=== PATIENT | male | born 1955 | race American Indian/Alaskan Native ===

== ENCOUNTER 2017-12-02 11:08 | Emergency (ER) | payer OTHER ==
[2017-12-02 11:20] VITALS: BP 148/79; PULSE 74; TEMP 98; BMI 23.5
--- NOTE | 2017-12-02 11:57 | PDOC ---
History of Present Illness <Agapito Bernardo - Last Filed: 12/02/17 14:30> - General History Source: Patient Exam Limitations: No Limitations - History of Present Illness Initial Comments: 12/02/17 14:50 The patient is a 62 year old male, with a significant past medical history of diabetes, hypercholesterolemia and kidney stone, who presents to the emergency department complaining of left sided abdominal pain onset this morning. He reports that he is unsure if th pain woke him up this morning. He describes his abdominal pain as ranging from moderate to severe, rating it a 9/10 in severity. He notes that the pain radiates to his left flank. He reports that the pain is exacerbated with certain movements or positions. He states that he had nonbloody loose stools yesterday and has since resolved. He also states that he experienced some episodes of nausea due to the pain but has since resolved. The pattient denies chest pain, shortness of breath, headache or dizziness. Denies fever, chills, vomiting, and constipation. Denies dysuria, frequency, urgency and hematuria. No associated numbness/tingling/weakness of the extremties. Allergies: None Past surgical history: None reported Social History: No alcohol, tobacco or drug use reported <Trever Tavera - Last Filed: 12/02/17 14:51> - General Chief Complaint: Pain Stated Complaint: ABD PAIN Time Seen by Provider: 12/02/17 11:33 Past History - Past Medical History COPD: No DVT: No Diabetes: Yes Hypercholesterolemia: (high triglycerides) - Suicide/Smoking/Psychosocial Hx Smoking History: Never smoked <Agapito Bernardo - Last Filed: 12/02/17 14:30> <Trever Tavera - Last Filed: 12/02/17 14:51> - Past Medical History Allergies/Adverse Reactions: Allergies Allergy/AdvReac Type Severity Reaction Status Date / Time No Known Allergies Allergy Verified 12/02/17 11:20 Home Medications: Ambulatory Orders Fenofibrate Nanocrystallized [Fenofibrate] 145 mg PO DAILY 12/02/17 Ibuprofen [Motrin -] 400 mg PO QID PRN #28 tablet 12/02/17 Oxycodone HCl/Acetaminophen [Percocet 5-325 mg Tablet] 1 tab PO Q6H PRN #20 tablet MDD 4 12/02/17 Sitagliptin Phos/Metformin HCl [Janumet 50-500 mg Tablet] 1 each PO BID Tamsulosin HCl [Flomax] 0.4 mg PO DAILY #7 capsule 12/02/17 Review of Systems - Review of Systems Able to Perform ROS?: Yes Comments:: 12/02/17 14:50 CONSTITUTIONAL: No reported: Fever, Chills, Diaphoresis, Generalized Weakness, Malaise, Loss of Appetite HEENT: No reported: Rhinorrhea, Nasal Congestion, Throat Pain, Throat Swelling, Difficulty Swallowing, Mouth Swelling, Ear Pain, Eye Pain, Visual Changes CARDIOVASCULAR: No reported: Chest Pain, Syncope, Palpitations, Irregular Heart Rate, Lightheadedness, Peripheral Edema RESPIRATORY: No reported: Cough, Shortness of Breath, SOB with Exertion, Orthopnea, Wheezing , Stridor, Hemoptysis GASTROINTESTINAL: Reported: Left sided abdominal pain nausea No reported: Abdominal Distension, Vomiting, Constipation, Melena, Hematochezia GENITOURINARY: Reported: Left sided flank pain. No reported: Dysuria, Frequency, Urgency, Hesitancy, Genital Pain MUSCULOSKELETAL: No reported: Myalgia, Arthralgia, Joint Swelling, Back pain, Neck Pain SKIN: No reported: Rash, Itching, Pallor HEMEATOLOGIC/IMMUNOLOGIC: No reported: Easy Bleeding, Easy Bruising, Lymphadenopathy, Frequent infections ENDOCRINE: No reported: Unexplained Weight Gain, Unexplained Weight Loss, Heat Intolerance , Cold Intolerance NEUROLOGIC: No reported: Headache, Focal Weakness, Paresthesias, Vertigo, Lightheadedness, Unsteady Gait, Seizure, Mental Status Changes, Incontinence PSYCHIATRIC: No reported: Anxiety, Depression <Trever Tavera - Last Filed: 12/02/17 14:51> *Physical Exam - Vital Signs Last Vital Signs Temp Pulse Resp BP Pulse Ox 98 F 74 18 148/79 99 12/02/17 11:16 12/02/17 11:16 12/02/17 11:16 12/02/17 11:16 12/02/17 11:16 <Agapito Bernardo - Last Filed: 12/02/17 14:30> - Vital Signs Last Vital Signs Temp Pulse Resp BP Pulse Ox 98 F 74 18 148/79 99 12/02/17 11:16 12/02/17 11:16 12/02/17 11:16 12/02/17 11:16 12/02/17 11:16 - Physical Exam Comments: 12/02/17 14:50 GENERAL: The patient is awake, alert, and fully oriented, Nontoxic - in no acute distress. HEAD: Normocephalic, atraumatic. EYES: extraocular movements intact, sclera anicteric, conjunctiva clear. ENT: Normal voice, Moist mucous membranes. NECK: Normal range of motion, supple LUNGS: Breath sounds equal, clear to auscultation bilaterally. No wheezes, no rhonchi, no rales. HEART: Regular rate and rhythm, without murmur, rub or gallop. ABDOMEN: Soft, nontender, normoactive bowel sounds. No guarding, no rebound. No CVA tenderness EXTREMITIES: Normal range of motion, no edema. No clubbing or cyanosis. No cords, erythema, or tenderness. NEUROLOGICAL: No facial assymetry, Normal speech, PSYCH: Normal mood, normal affect. SKIN: Warm, Dry, normal turgor <Trever Tavera - Last Filed: 12/02/17 14:51> ED Treatment Course - LABORATORY CBC & Chemistry Diagram: 12/02/17 12:14 12/02/17 12:14 <Agapito Bernardo - Last Filed: 12/02/17 14:30> - LABORATORY CBC & Chemistry Diagram: 12/02/17 12:14 12/02/17 12:14 - ADDITIONAL ORDERS Additional order review: Laboratory Results 12/02/17 12/02/17 12:14 12:14 Sodium 139 Potassium 4.0 Chloride 103 Carbon Dioxide 25 Anion Gap 11 BUN 25 H Creatinine 1.1 Creat Clearance w eGFR > 60 Random Glucose 235 H Calcium 9.6 Total Bilirubin 0.4 AST 14 L ALT 32 Alkaline Phosphatase 52 Total Protein 7.6 Albumin 4.3 Urine Color Karmen Urine Appearance Slcloudy Urine pH 5.0 Ur Specific [place] 1.019 Urine Protein Negative Urine Glucose (UA) 2+ H Urine Ketones Negative Urine Blood 2+ H Urine Nitrite Negative Urine Bilirubin Negative Urine Urobilinogen Negative Ur Leukocyte Esterase Negative Urine WBC (Auto) 2 Urine RBC (Auto) 32 Urine Mucus Rare 12/02/17 12:14 RBC 5.06 MCV 86.2 MCHC 34.0 RDW 13.4 MPV 8.0 Neutrophils % 70.2 Lymphocytes % 20.0 Monocytes % 6.5 Eosinophils % 2.4 Basophils % 0.9 - Medications Given in the ED: ED Medications Discontinued Medications Generic Name Dose Route Start Last Admin Trade Name [place] PRN Reason Stop Dose Admin Sodium Chloride 1,000 mls @ 1,000 mls/hr 12/02/17 12:17 12/02/17 12:19 Normal Saline - IV 12/02/17 13:16 1,000 mls/hr .Q1H ONE Administration Ketorolac Tromethamine 30 mg 12/02/17 12:17 12/02/17 12:19 Toradol Injection - IVPUSH 12/02/17 12:18 30 mg ONCE ONE Administration <Trever Tavera - Last Filed: 12/02/17 14:51> Medical Decision Making - Medical Decision Making 12/02/17 11:54 62y M hx of DM, kidney stones presents with L sided abd pain that radiates to the flank and back. Started when he woke up, and is very severe, is colicky nature, but currently pain has resolved. denies dysuria, hematuria, fever/chills , bowel complaints, n/v, exam unremarkable suspect kidney stone/nephrolithiasis Plan is to obtain bloodwork, ua, renal US will give tordaol for pain and will reassess 12/02/17 14:32 pt feeling well currently pain free UA with hematuria US shows no hydronephrosis - likely due to small stone will dc [t with meds and fu w urology return precautions were discussed I discussed the physical exam findings, ancillary test results and final diagnoses with the patient. I answered all of the patient's questions. The patient was satisfied with the care received and felt comfortable with the discharge plan and treatment plan. The patient will call their primary care physician within 24 hours to arrange follow-up and will return to the Emergency Department with any new, persistent or worsening symptoms. A portion of this note was documented by scribe services under my direction. I have reviewed the details of the note, within reason, and agree with the documentation with the following case summary and management plan written by me <Agapito Bernardo - Last Filed: 12/02/17 14:30> *DC/Admit/Observation/Transfer - Discharge Dispostion Admit: No <Tova,Agapito - Last Filed: 12/02/17 14:30> - Attestations Scribe Attestion: 12/02/17 14:51 Documentation prepared by Trever Tavera, acting as emergency medical technician basic for Agapito Bernardo MD <Trever Tavera - Last Filed: 12/02/17 14:51> Diagnosis at time of Disposition: Kidney stone on left side - Discharge Dispostion Disposition: HOME Condition at time of disposition: Improved - Prescriptions Prescriptions: Ibuprofen [Motrin -] 400 mg PO QID PRN #28 tablet PRN Reason: Pain Oxycodone HCl/Acetaminophen [Percocet 5-325 mg Tablet] 1 tab PO Q6H PRN #20 tablet MDD 4 PRN Reason: Severe Pain Tamsulosin HCl [Flomax] 0.4 mg PO DAILY #7 capsule - Referrals Referrals: Ivonne Ralph MD [Primary Care Provider] - Rudolph Tavera MD [Staff Physician] - - Patient Instructions Printed Discharge Instructions: DI for Kidney Stones Additional Instructions: Return to the emergency department immediately with ANY new, persistent or worsening symptoms including worsening pain, fevers, inability to tolerate oral intake or any other concerns. Take the pain medication as prescribed. Followup with urology for your kidney stones. You MUST call and follow up with your doctor tomorrow for further evaluation of your symptoms. Results were discussed with you. Please make sure your doctor reviews the results of your emergency evaluation. Print Language: MALAGASY - Post Discharge Activity
[2017-12-02] MEDS ORDERED: SODIUM CHLORIDE 1,000 ML IV ONE (12:17)
[2017-12-02] MEDS ORDERED: KETOROLAC TROMETHAMINE 30 MG/1 ML VIAL IVPUSH ONE (12:17)
[2017-12-02] MEDS ORDERED: KETOROLAC TROMETHAMINE 30 MG/1 ML VIAL ONE (12:21)
[2017-12-02 12:23] LABS: URINE APPEARANCE SLCLOUDY; URINE BILIRUBIN NEGATIVE (<2.0 mg/dL); URINE BLOOD 2+ (NEGATIVE); URINE COLOR AMBER; URINE GLUCOSE (UA) 2+ (NEGATIVE); URINE KETONE NEGATIVE (NEGATIVE); URINE LEUK ESTERASE NEGATIVE (NEGATIVE); URINE NITRITE NEGATIVE (NEGATIVE); URINE PROTEIN NEGATIVE (NEGATIVE); URINE UROBILINOGEN NEGATIVE mg/dL (0.2-1.0)
[2017-12-02 12:25] LABS: BASO % 0.9 % (0-2.0); EOS % 2.4 % (0-4.5); HEMATOCRIT 43.6 % (35.4-49); HEMOGLOBIN 14.8 GM/dL (11.7-16.9); MCH 29.3 pg (25.7-33.7); MEAN CELL VOLUME 86.2 fl (80-96); MONO % 6.5 % (3.8-10.2); NEUT % 70.2 % (42.8-82.8); PLATELET COUNT 243 K/MM3 (134-434); RBC 5.06 M/mm3 (4.00-5.60); RDW 13.4 % (11.9-15.9); WHITE BLOOD COUNT 8.6 K/mm3 (4.0-10.0)
[2017-12-02 12:27] LABS: URINE MUCUS RARE
[2017-12-02 12:52] LABS: ALBUMIN 4.3 g/dl (3.4-5.0); ANION GAP 11 (8-16); BLOOD UREA NITROGEN 25 mg/dL (7-18); CALCIUM 9.6 mg/dL (8.5-10.1); CHLORIDE 103 mmol/L (98-107); CO2 25 mmol/L (21-32); GLUCOSE,RANDOM 235 mg/dL (74-106); SGPT/ALT 32 U/L (12-78); SODIUM 139 mmol/L (136-145)
[2017-12-02 12:55] LABS: ALK PHOS 52 U/L (45-117); BILIRUBIN,TOTAL 0.4 mg/dL (0.2-1.0); CREATININE 1.1 mg/dL (0.7-1.3); SGOT/AST 14 U/L (15-37); TOT PROT 7.6 g/dl (6.4-8.2)
== END 2017-12-02 14:49 | disposition home or self-care (01) ==
LOC: JER 11:08
PROC: 3E033GC Introduction of Other Therapeutic Substance into Peripheral Vein, Percutaneous Approach (ICD-10-PCS; principal; 2017-12-02)
DX: N20.0 Calculus of kidney (principal); Z87.442 Personal history of urinary calculi; E11.9 Type 2 diabetes mellitus without complications; Z79.84 Long term (current) use of oral hypoglycemic drugs; E78.00 Pure hypercholesterolemia, unspecified
CPT/HCPCS: 36415; 76775-TC; 80053; 81003; 81015; 85025; 99283-25; J7030

== ENCOUNTER 2017-12-06 05:09 | Inpatient (IN) | payer OTHER ==
[2017-12-06 06:17] VITALS: BMI 23.5
[2017-12-06] MEDS ORDERED: SODIUM CHLORIDE 1,000 ML IV STA ×2 (06:26→07:47)
--- NOTE | 2017-12-06 06:26 | PDOC ---
*Physical Exam - Vital Signs Last Vital Signs Temp Pulse Resp BP Pulse Ox 98.2 F 86 19 125/79 100 12/06/17 05:10 12/06/17 05:10 12/06/17 05:10 12/06/17 05:10 12/06/17 05:10 ED Treatment Course - LABORATORY CBC & Chemistry Diagram: 12/06/17 06:40 12/06/17 06:40 Medical Decision Making - Medical Decision Making 12/06/17 06:26 agree with care from MIRNA Floyd *DC/Admit/Observation/Transfer Diagnosis at time of Disposition: Left flank pain, Kidney stone on left side, Hydronephrosis - Discharge Dispostion Condition at time of disposition: Good - Prescriptions - Referrals - Patient Instructions - Post Discharge Activity
--- NOTE | 2017-12-06 06:26 | PDOC ---
History of Present Illness - General Chief Complaint: Pain, Acute Stated Complaint: PAIN Time Seen by Provider: 12/06/17 06:16 History Source: Patient Exam Limitations: No Limitations - History of Present Illness Initial Comments: CHIEF COMPLAINT: 62 y/o afebrile male with PMH DM, HLD and kidney stones c/o left sided flank pain for the past 5 days. HISTORY OF PRESENT ILLNESS: Patient states he was seen here for the same pain 5 days ago when it started. He had a kidney ultrasound which showed no hydronephrosis, and was discharged with rx for percocet, ibuprofen and flomax. He was instructed to f/u with a urologist, which he did yesterday. He has continued to have pain intermittently but this morning he was woken up by the pain and it hasn't gone away despite taking percocet at 2am and 400mg of ibuprofen at 3am. He admits to nausea with the pain. He denies f/c, vomiting, CP, SOB, back pain, hematuria, dysuria. His urologist scheduled him for an outpatient CT scan tomorrow. Vital signs on arrival are within normal limits REVIEW OF SYSTEMS: GENERAL/CONSTITUTIONAL: No fever/chills. No weakness. No weight change. HEAD, EYES, EARS, NOSE AND THROAT: No change in vision. No ear pain or discharge. No sore throat. CARDIOVASCULAR: No chest pain or shortness of breath. RESPIRATORY: No cough, wheezing, or hemoptysis. GASTROINTESTINAL: +left flank pain. No nausea, vomiting, diarrhea. GENITOURINARY: No dysuria, frequency, or change in urination. MUSCULOSKELETAL: No joint or muscle swelling or pain. No neck or back pain. SKIN: No rash or easy bruising. NEUROLOGIC: No headache, vertigo, loss of consciousness, or loss of sensation. PHYSICAL EXAM: GENERAL: The patient is awake, alert, and fully oriented, in no acute distress. He appears uncomfortable. HEAD: Normal with no signs of trauma. ENT: Pupils equal, round and reactive to light, extraocular movements intact, sclera anicteric, conjunctiva clear. Neck supple. LUNGS: Clear to auscultation bilaterally. Normal excursion. No respiratory distress or use of accessory muscles. CV: RRR, S1/S2, no MRG. Cap refill < 2 sec. ABDOMEN: Soft, non-distended, non-tender even to deep palpation, no hepatomegaly or splenomegaly, no masses. No flank pain with palpation BACK: No CVA TTP b/l. EXTREMITIES: Normal range of motion, no edema. NEUROLOGICAL: Normal speech, normal gait. CN II-XII grossly intact. PSYCH: Normal mood, normal affect. SKIN: Warm, dry, normal turgor, no rashes or lesions noted. Past History - Past Medical History Allergies/Adverse Reactions: Allergies Allergy/AdvReac Type Severity Reaction Status Date / Time No Known Allergies Allergy Verified 12/02/17 11:20 Home Medications: Ambulatory Orders Fenofibrate Nanocrystallized [Fenofibrate] 145 mg PO DAILY 12/02/17 Ibuprofen [Motrin -] 400 mg PO QID PRN #28 tablet 12/02/17 Oxycodone HCl/Acetaminophen [Percocet 5-325 mg Tablet] 1 tab PO Q6H PRN #20 tablet MDD 4 12/02/17 Sitagliptin Phos/Metformin HCl [Janumet 50-500 mg Tablet] 1 each PO BID Tamsulosin HCl [Flomax] 0.4 mg PO DAILY #7 capsule 12/02/17 COPD: No DVT: No Diabetes: Yes Hypercholesterolemia: (high triglycerides) - Suicide/Smoking/Psychosocial Hx Smoking History: Never smoked Hx Alcohol Use: No Drug/Substance Use Hx: No *Physical Exam - Vital Signs Last Vital Signs Temp Pulse Resp BP Pulse Ox 98.2 F 86 19 125/79 100 12/06/17 05:10 12/06/17 05:10 12/06/17 05:10 12/06/17 05:10 12/06/17 05:10 Medical Decision Making - Medical Decision Making A/P: 62 y/o male seen here 5 days ago for renal colic c/o worsened symptoms. Plan is as follows: 1. Labs 2. UA/culture 3. Spiral CT 4. IV fluids I am signing this patient out to my colleague: MIRNA Serrato In brief, this patient is being seen in the ED for a chief complaint of: left flank pain x 5 days I have completed the initial assessment interview note and have ordered: labs, UA/culture, Spiral CT I have reviewed the following results: none Pending results are: all Please call the PCP: Dr. Ralph Plan for disposition is as follows: reassess after results *DC/Admit/Observation/Transfer Diagnosis at time of Disposition: Left flank pain - Discharge Dispostion Condition at time of disposition: Stable - Referrals Referrals: Ivonne Ralph MD [Primary Care Provider] - - Patient Instructions - Post Discharge Activity
[2017-12-06 06:48] LABS: BASO % 0.5 % (0-2.0); EOS % 0.7 % (0-4.5); HEMATOCRIT 38.5 % (35.4-49); HEMOGLOBIN 13.1 GM/dL (11.7-16.9); LYMPH % 7.4 % (8-40); MCH 28.9 pg (25.7-33.7); MCHC 33.9 g/dl (32.0-35.9); MEAN CELL VOLUME 85.1 fl (80-96); MEAN PLT VOLUME 7.9 fl (7.5-11.1); MONO % 6.1 % (3.8-10.2); NEUT % 85.3 % (42.8-82.8); PLATELET COUNT 226 K/MM3 (134-434); RBC 4.52 M/mm3 (4.00-5.60); RDW 13.2 % (11.9-15.9); WHITE BLOOD COUNT 10.4 K/mm3 (4.0-10.0)
--- NOTE | 2017-12-06 07:09 | PDOC ---
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 Pt. pending CT scan to r/o kidney stone. Also pending urine. 12/06/17 08:06 CT scan of L flank shows a 3mm stone in the in the L mid ureter. Moderate hydronephrosis present. Pt. Cr elevated to 1.4. Cr was 1.1 on 12/02/17. Concern for CHLOE. Paged Dr. Perry urology. 12/06/17 09:[address] Perry. Given increased Cr, hydronephrosis and increasing pain, would like pt admitted for stent placement. Carlos contacted for admission. 12/06/17 10:01 Spoke with FIDEL Haq and case was discussed; will accept admission *DC/Admit/Observation/Transfer Diagnosis at time of Disposition: Left flank pain, Kidney stone on left side Hydronephrosis Qualifiers: Hydronephrosis type: with renal calculous obstruction Qualified Code(s): N13.2 - Hydronephrosis with renal and ureteral calculous obstruction - Discharge Dispostion Condition at time of disposition: Good Admit: Yes - Prescriptions - Referrals - Patient Instructions - Post Discharge Activity
[2017-12-06 07:15] LABS: ALBUMIN 3.8 g/dl (3.4-5.0); ANION GAP 6 (8-16); BILIRUBIN,TOTAL 0.2 mg/dL (0.2-1.0); BLOOD UREA NITROGEN 22 mg/dL (7-18); CALCIUM 8.8 mg/dL (8.5-10.1); CHLORIDE 105 mmol/L (98-107); CO2 27 mmol/L (21-32); CREATININE 1.4 mg/dL (0.7-1.3); GLUCOSE,RANDOM 162 mg/dL (74-106); POTASSIUM 4.2 mmol/L (3.5-5.1); SGOT/AST 17 U/L (15-37); SGPT/ALT 26 U/L (12-78); SODIUM 138 mmol/L (136-145)
[2017-12-06 07:16] LABS: ALK PHOS 44 U/L (45-117); TOT PROT 6.8 g/dl (6.4-8.2)
[2017-12-06 07:21] LABS: URINE APPEARANCE CLEAR; URINE BILIRUBIN NEGATIVE (<2.0 mg/dL); URINE BLOOD 1+ (NEGATIVE); URINE COLOR LTYELLOW; URINE GLUCOSE (UA) NEGATIVE (NEGATIVE); URINE KETONE NEGATIVE (NEGATIVE); URINE LEUK ESTERASE NEGATIVE (NEGATIVE); URINE NITRITE NEGATIVE (NEGATIVE); URINE PROTEIN NEGATIVE (NEGATIVE); URINE UROBILINOGEN NEGATIVE mg/dL (0.2-1.0)
[2017-12-06] MEDS ORDERED: KETOROLAC TROMETHAMINE 30 MG/1 ML VIAL IVPUSH ONE (07:47)
[2017-12-06] MEDS ORDERED: KETOROLAC TROMETHAMINE 30 MG/1 ML VIAL ONE (07:48)
[2017-12-06] MEDS ORDERED: morphine CARPU-JECT 2 MG/1 ML DISP.SYRIN IVPUSH ONE (10:28)
[2017-12-06] MEDS ORDERED: morphine SULFATE 4 MG/ML VIAL ONE (10:35)
--- NOTE | 2017-12-06 12:36 | HP ---
Admitting History and Physical - Admission Chief Complaint: L sided flank pain History of Present Illness: This is a 62 year old male with pmhx of DM II, HLD, kidney stone seen in [facility] on 12/02 with left sided flank pain. He was sent home with urology follow up. Yesterday, he was seen in Dr. Caruso who ordered a CTAP and was due to see him again tomorrow. In the middle of the night the pain was intolerable and he came to the ED. The pain refers from his left flank to left lower quadrant. Currently, the pain in under control with pain medication. D/w urology pt likely will go for stent placement today or tomorrow. The patient denies sob, chest pain, changes in bowel, urinary frequency, hesitancy, dysuria. History Source: Patient Limitations to Obtaining History: No Limitations - Past Medical History Cardiovascular: Yes: Hyperlipdemia Endocrine: Yes: Diabetes Mellitus - Smoking History Smoking history: Never smoked - Alcohol/Substance Use Hx Alcohol Use: No - Social History Usual Living Arrangement: Yes: With Spouse ADL: Independent History of Recent Travel: No Home Medications - Allergies Allergies/Adverse Reactions: Allergies Allergy/AdvReac Type Severity Reaction Status Date / Time No Known Allergies Allergy Verified 12/02/17 11:20 - Home Medications Home Medications: Ambulatory Orders Fenofibrate Nanocrystallized [Fenofibrate] 145 mg PO DAILY 12/02/17 Ibuprofen [Motrin -] 400 mg PO QID PRN #28 tablet 12/02/17 Oxycodone HCl/Acetaminophen [Percocet 5-325 mg Tablet] 1 tab PO Q6H PRN #20 tablet MDD 4 12/02/17 Sitagliptin Phos/Metformin HCl [Janumet 50-500 mg Tablet] 1 each PO BID Tamsulosin HCl [Flomax] 0.4 mg PO DAILY #7 capsule 12/02/17 Review of Systems - Review of Systems Constitutional: reports: No Symptoms Eyes: reports: No Symptoms HENT: reports: No Symptoms Neck: reports: No Symptoms Cardiovascular: reports: No Symptoms Respiratory: reports: No Symptoms Gastrointestinal: reports: Abdominal Pain (Left lower) Genitourinary: reports: Flank Pain (left) Musculoskeletal: reports: No Symptoms Integumentary: reports: No Symptoms Neurological: reports: No Symptoms Endocrine: reports: No Symptoms Hematology/Lymphatic: reports: Swollen Glands Psychiatric: reports: No Symptoms Physical Examination Vital Signs: Vital Signs Temperature 98.2 F 12/06/17 05:10 Pulse Rate 86 12/06/17 05:10 Respiratory Rate 19 12/06/17 05:10 Blood Pressure 125/79 12/06/17 05:10 O2 Sat by Pulse Oximetry (%) 100 12/06/17 05:10 Constitutional: Yes: Calm Eyes: Yes: Conjunctiva Clear HENT: Yes: Atraumatic Cardiovascular: Yes: Regular Rate and Rhythm, S1, S2 Respiratory: Yes: Regular, CTA Bilaterally Gastrointestinal: Yes: Normal Bowel Sounds, Soft ...Rectal Exam: Yes: WNL Renal/: Yes: WNL Musculoskeletal: Yes: WNL Extremities: Yes: WNL Edema: No Peripheral Pulses WNL: Yes Neurological: Yes: Alert, Oriented, Cran Nerves II-XII Intact Psychiatric: Yes: Alert, Oriented Labs: CBC, BMP 12/06/17 06:40 12/06/17 06:40 Imaging - Results Cat Scan: Report Reviewed (3mm obstructing stone mid left ureter, mild-mod left renal hydro and proximal hydrourter Left adrenal nodule measuring 1.7x1.2cm without interval change) Ultrasound: Report Reviewed Problem List - Problems (1) Diabetes Code(s): E11.9 - TYPE 2 DIABETES MELLITUS WITHOUT COMPLICATIONS (2) Hydronephrosis Code(s): N13.30 - UNSPECIFIED HYDRONEPHROSIS Qualifiers: Hydronephrosis type: with renal calculous obstruction Qualified Code(s): N13.2 - Hydronephrosis with renal and ureteral calculous obstruction (3) Kidney stone on left side Code(s): N20.0 - CALCULUS OF KIDNEY (4) Left flank pain Code(s): R10.9 - UNSPECIFIED ABDOMINAL PAIN Assessment/Plan Assessment: 62 year old male with dm II admitted with Left flank pain Plan: 1. left sided obstructing nephrolithiasis with hydronephrosis - s/p 2L in ED - Continue NS 100cc/hr - For OR for stent placement today - Flomax daily - D/w urology 2. DM II - Hold po meds - ISS, BGM ACHS 3. DVT - SCDS Visit type - Emergency Visit Emergency Visit: Yes ED Registration Date: 12/06/17 Care time: The patient presented to the Emergency Department on the above date and was hospitalized for further evaluation of their emergent condition. - New Patient This patient is new to me today: Yes Date on this admission: 12/06/17 - Critical Care Critical Care patient: No Hospitalist Screening - Colonoscopy Questionnaire Colonoscopy Questionnaire: Colonoscopy Questionnaire - Patient: 50 - 75 years old and never had a screening colonoscopy: Unknown History of colon or rectal polyps, or CA: Unknown History of IBD, Crohn's disease or UC: Unknown History of abdominal radiation therapy as a child: Unknown - Relative: 1 with colon or rectal CA, or polyps at age 60 or younger: Unknown Colon or rectal CA diagnosed at age 45 or younger: Unknown Multiple relatives with colon or rectal CA: Unknown - Outcome: Screening Result: Negative Screen
[2017-12-06] MEDS ORDERED: oxyCODONE HCL 5 MG TABLET PO PRN (12:53)
[2017-12-06] MEDS ORDERED: SODIUM CHLORIDE 1,000 ML IV SCH (13:00)
[2017-12-06 14:09] LABS: MAGNESIUM 1.7 mg/dL (1.8-2.4)
[2017-12-06] MEDS ORDERED: morphine SULFATE 4 MG/ML VIAL IVPUSH PRN (14:48)
[2017-12-06] MEDS ORDERED: PROPOFOL 20 ML ONE (15:24)
[2017-12-06] MEDS ORDERED: ceFAZolin SODIUM 1 GM VIAL ONE (15:30)
[2017-12-06] MEDS ORDERED: ceFAZolin SODIUM 1 GM VIAL IVPB ONE (15:40)
[2017-12-06] MEDS ORDERED: MAGNESIUM SULF 50% (8.12 MEQ/2 ML-1 GM VIAL) IVPB ONE (16:09)
--- NOTE | 2017-12-06 16:17 | OP ---
Operative Note - Note: Operative Date: 12/06/17 Pre-Operative Diagnosis: Left Renal Colic, Left Ureteral calculus Operation: Cysto Stent placement Findings: Obstructing left ureteral calc Post-Operative Diagnosis: Same as Pre-op Surgeon: Licha Caruso Anesthesia: General Drains & Tubes with Location: 22 6mm stent
[2017-12-06] MEDS ORDERED: INSULIN SLIDING SCALE (NOVOLOG) 1 VIAL SQ SCH (16:30)
[2017-12-06 19:32] VITALS: BP 129/61; PULSE 66; TEMP 98.2
--- NOTE | 2017-12-07 08:19 | OP ---
DATE OF OPERATION: 12/06/2017 SURGEON: Licha Caruso MD ANESTHESIA: General. PREOPERATIVE DIAGNOSIS: Left renal colic and obstructing left ureteral calculus. POSTOPERATIVE DIAGNOSIS: Left renal colic and obstructing left ureteral calculus. PROCEDURE: Cystoscopy and placement of left ureteral stent. FINDINGS: Stone found to be in the mid ureter completely obstructive. DESCRIPTION OF PROCEDURE: Patient in lithotomy position, underwent anesthesia, was prepped and draped in the usual manner. Using 22 scope, cystoscopy performed, and guidewire was attempted to be placed in the left ureteral orifice. With considerable difficulty and maneuvering, the guidewire was passed and placed beyond the calculus. It was decided at this point to simply put a stent as purulent material was coming out of the left collecting system. The stent was placed without difficulty and confirmed with the x-ray. Patient tolerated the procedure well and left the operating room in a satisfactory condition. Rima FLOWER/[id number]
[2017-12-07] MEDS ORDERED: TAMSULOSIN HCL 0.4 MG CAP.ER.24H (FP) PO SCH (08:30)
== END 2017-12-06 19:20 | disposition home or self-care (01) | DRG 694 ==
LOC: JER 05:09 → JERBED 10:17
PROVIDERS: ADMIT Internal Medicine; ATTEND Nurse Practitioner Acute Care
PROC: 0T778DZ Dilation of Left Ureter with Intraluminal Device, Via Natural or Artificial Opening Endoscopic (ICD-10-PCS; principal; 2017-12-06 15:00)
DX: N13.2 Hydronephrosis with renal and ureteral calculous obstruction (principal); E78.5 Hyperlipidemia, unspecified; E11.9 Type 2 diabetes mellitus without complications; R10.32 Left lower quadrant pain
CPT/HCPCS: 36415; 74018-TC-FY; 74176; 76000-TC-FY; 80053; 81003; 81015; 83735; 85025; 87086; 94760; 99285-25; J7030

== ENCOUNTER 2017-12-20 12:31 | Day surgery (SDC) | payer OTHER ==
[2017-12-20 13:36] VITALS: BMI 23.5
[2017-12-20] MEDS ORDERED: MIDAZOLAM HCL 2 MG/2 ML SINGLE DOSE VIAL ONE (14:38)
[2017-12-20] MEDS ORDERED: PROPOFOL 20 ML ONE (14:43)
[2017-12-20] MEDS ORDERED: LIDOCAINE HCL/PF 2% SDV 5ML VIAL ONE (15:02)
[2017-12-20] MEDS ORDERED: DEXAMETHASONE SOD PHOSPHATE 4 MG/1 ML VIAL ONE (15:02)
--- NOTE | 2017-12-20 15:44 | OP ---
Operative Note - Note: Operative Date: 12/20/17 Pre-Operative Diagnosis: Left renal colic, indwelling stent Operation: Cysto, removal of stent and retro Findings: Urethra and bladder are normal. left retro showed no hydro. No evidence of calculus noted. The contrast drained quickly and easily from the left side. No hang ups noted. No evidence of calculus in the left collecting system noted Post-Operative Diagnosis: Same as Pre-op Surgeon: Licha Caruso Anesthesia: General Operative Report Dictated: Yes
[2017-12-20] MEDS ORDERED: oxyCODONE HCL 5 MG TABLET PO PRN (16:15)
[2017-12-20] MEDS ORDERED: LACTATED RINGERS SOLUTION 1,000 ML IV SCH (16:15)
[2017-12-20] MEDS ORDERED: ONDANSETRON 4 MG/2 ML VIAL IVPUSH PRN (16:15)
[2017-12-20] MEDS ORDERED: PROMETHAZINE HCL 25 MG/1 ML VIAL IVPUSH PRN (16:15)
[2017-12-20] MEDS ORDERED: KETOROLAC TROMETHAMINE 30 MG/1 ML VIAL ONE (18:40)
[2017-12-20] MEDS ORDERED: KETOROLAC TROMETHAMINE 30 MG/1 ML VIAL IVPUSH ONE (19:15)
[2017-12-20 20:06] VITALS: PULSE 77; TEMP 98.6
[2017-12-20 20:10] VITALS: BP 140/90
--- NOTE | 2017-12-21 11:18 | OP ---
DATE OF OPERATION: 12/20/2017 SURGEON: Licha Caruso MD ANESTHESIA: General. PREOPERATIVE DIAGNOSIS: Indwelling left ureteral stent, possible left renal calculus or ureteral calculus. PROCEDURE: Cystoscopy, removal of stent, and left retrograde. FINDINGS: Urethra, bladder neck, and bladder within normal limits. The stent was seen protruding from the left ureteral orifice. Left retrograde after removal of the stent showed no evidence of any calculus, no hydronephrosis. DESCRIPTION OF PROCEDURE: Patient, in lithotomy position under anesthesia, was prepped and draped in the usual manner. Using 22 scope, cystoscopy performed, and then, using the biopsy forceps, the stent was removed. Then, using a dual-access catheter, retrograde performed. No evidence of hydronephrosis noted. No calculus material seen in the left collecting system. After the injection of the contrast material, the drainage was found to be quick and lara except at the UV junction which was slightly delayed in expressing the contrast material. DESCRIPTION OF PROCEDURE: Patient, in lithotomy position under anesthesia, was prepped and draped in the usual manner. Using 22 scope, cystoscopy performed, and the stent was removed. Using contrast material and dual-access catheter, retrograde performed, and findings were noted above. Patient tolerated the procedure well, left the operating room in satisfactory condition. Rima FLOWER/[id number]
--- NOTE | 2017-12-22 11:04 | PATH ---
Surgical Pathology Report Patient Name: SAM MEDLEY Med. Rec. #: [id number] /Age/Gender: 1955 (Age: 62) / M Account: [id number] Location: [facility] Taken: 12/20/2017 Received: 12/21/2017 Reported: 12/22/2017 Physicians: Licha Caruso M.D. 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 Electronically Signed Farhan Cobb M.D. Gross Description Received fresh labeled "left ureteral stent" is a coiled green tube consistent with ureteral stent measuring 30 cm in length with a 0.1 cm diameter. No soft tissue tissue is identified. For gross examination only. SAHIL/12/21/2017 [email or web address]/12/21/2017
== END 2017-12-20 20:10 | disposition home or self-care (01) ==
LOC: JASU-SURG 12:31
PROVIDERS: ATTEND Urology
PROC: 0TP Urinary System, Removal (ICD-10-PCS; principal; 2017-12-20 14:00)
DX: Z46.6 Encounter for fitting and adjustment of urinary device (principal); E11.9 Type 2 diabetes mellitus without complications
CPT/HCPCS: 76000-TC-FY; 82962; 94760

== ENCOUNTER 2021-05-03 04:23 | Day surgery (SDC) | payer OTHER ==
[2021-04-29 13:57] VITALS: BMI 22.8
[2021-05-03] MEDS ORDERED: PROPOFOL 20 ML ONE ×2 (07:25)
[2021-05-03] MEDS ORDERED: ACETAMINOPHEN 325 MG TABLET (FP) PO PRN (09:21)
[2021-05-03] MEDS ORDERED: oxyCODONE HCL 5 MG TABLET PO PRN (09:21)
[2021-05-03] MEDS ORDERED: ONDANSETRON 4 MG/2 ML VIAL IVPUSH PRN (09:21)
[2021-05-03] MEDS ORDERED: LACTATED RINGERS SOLUTION 1,000 ML IV SCH (09:30)
[2021-05-03] MEDS ORDERED: ACETAMINOPHEN 325 MG TABLET (FP) ONE (10:47)
[2021-05-03] MEDS ORDERED: ACETAMINOPHEN 325 MG TABLET (FP) PO ONE (10:50)
[2021-05-03 11:46] VITALS: BP 116/66; PULSE 64; TEMP 97.7
== END 2021-05-03 11:15 | disposition home or self-care (01) ==
LOC: JASU-SURG 04:23
PROVIDERS: ATTEND Urology
PROC: 0TF3XZZ Fragmentation in Right Kidney Pelvis, External Approach (ICD-10-PCS; principal; 2021-05-03 08:30)
DX: N20.0 Calculus of kidney (principal); E11.9 Type 2 diabetes mellitus without complications; Z79.84 Long term (current) use of oral hypoglycemic drugs
CPT/HCPCS: 82962

== ENCOUNTER 2021-05-31 04:23 | Day surgery (SDC) | payer OTHER ==
[2021-05-27 13:19] VITALS: BMI 22.4
[2021-05-31] MEDS ORDERED: MIDAZOLAM HCL 2 MG/2 ML SINGLE DOSE VIAL ONE (08:49)
[2021-05-31 12:50] VITALS: TEMP 96.6
[2021-05-31 12:55] VITALS: BP 115/64; PULSE 55
== END 2021-05-31 12:55 | disposition home or self-care (01) ==
LOC: JASU-SURG 04:23
PROVIDERS: ATTEND Urology
PROC: 0TF4XZZ Fragmentation in Left Kidney Pelvis, External Approach (ICD-10-PCS; principal; 2021-05-31 08:30)
DX: N20.0 Calculus of kidney (principal)
CPT/HCPCS: 82962

== ENCOUNTER 2023-08-07 03:53 | Day surgery (SDC) | payer OTHER ==
[2023-07-31 10:44] VITALS: BMI 21.9
[2023-08-07 06:52] VITALS: RESP 20
[2023-08-07] MEDS ORDERED: MIDAZOLAM HCL 2 MG/2 ML SINGLE DOSE VIAL ONE (07:43)
[2023-08-07] MEDS ORDERED: FENTANYL CITRATE/PF 50 MCG/ML VIAL ONE (07:43)
[2023-08-07 11:41] VITALS: BP 110/61; PULSE 72; TEMP 98.4
== END 2023-08-07 10:30 | disposition home or self-care (01) ==
LOC: JASU-SURG 03:53
PROVIDERS: ATTEND Urology
PROC: 0TF4XZZ Fragmentation in Left Kidney Pelvis, External Approach (ICD-10-PCS; principal; 2023-08-07 08:00)
DX: N20.0 Calculus of kidney (principal)
CPT/HCPCS: 82962